=== PATIENT | female | born 1960 | race Caucasian/White ===

== ENCOUNTER 2019-05-30 08:05 | Emergency (ER) | payer BC, OTHER ==
[~2019-05-30] VITALS: Ht 160 cm; Wt 92.8 kg
[~2019-05-30 08:05] MED LIST: ESTRADIOL; EZET10TA5; FENO145T; HYZAAR
[2019-05-30] MEDS ORDERED: FLUT16SP22 (08:26)
[2019-05-30] MEDS ORDERED: METF-397 (08:26)
[2019-05-30] MEDS ORDERED: LEVO50TA6 (08:26)
[2019-05-30 08:33] LABS: BILIRUBIN,URINE NEGATIVE (NEGATIVE); CLARITY,URINE SL CLOUDY; COLOR,URINE YELLOW; GLUCOSE, URINE (UA) NEGATIVE (NEGATIVE); KETONES,URINE NEGATIVE (NEGATIVE); LEUKOCYTE ESTERASE ,URINE 2+ (NEGATIVE); NITRITE,URINE NEGATIVE (NEGATIVE); PH,URINE 6.5 (5-9); PROTEIN,URINE NEGATIVE (NEGATIVE)
[2019-05-30 08:47] LABS: BACTERIA,URINE LARGE /HPF; WBC,URINE TNTC /HPF
--- NOTE | 2019-05-30 09:10 | NUR ---
NOTIFEID PT OF VERY CRITICAL PT IN THE ER AND DR WOULD BE IN SOON HE COULD. DENIES NEEDS AT THIS TIME.
[2019-05-30] MEDS ORDERED: LEVOFLOXACIN 500 MG TAB (LEVAQUIN) PO STA (09:33)
--- NOTE | 2019-05-30 09:40 | ED GU-Female ---
General Chief Complaint: - Urinary Stated Complaint: POSS UTI Nursing Triage Note: ARRIVED VIA AMB TO ROOM 10 WITHOUT DIFFICULTY. COMPLAINS OF BURNING UPON URINATION WITH BLOOD ON THE TISSUE STARTING IN THE NIGHT. LOWER LEFT KIDNEY PAIN YESTERDAY. Nursing Sepsis Screen: No Definite Risk Source: patient Exam Limitations: no limitations History of Present Illness Date Seen by Provider: May 30, 2019 Time Seen by Provider: 09:25 Initial Comments Here with report of burning with urination and some hematuria. Did have some right-sided low back pain that has been moving recently. Does have history of kidney stones and states that that can feel similar but it is not bad and she has not had to take any medicine for it. Denies fever or chills. Timing/Duration: other (2-3 days) Severity/Quality: mild, aching, burning Location: suprapubic Radiation: back (on right) Activities at Onset: none Associated Symptoms: dysuria; No fever/chills; urinary frequency Allergies and Home Medications Allergies Coded Allergies: niacin (Verified Allergy, Severe, HIVES, 05/30/19) NKANo Known Allergies (Verified Allergy, Unknown, 11/08/06) Patient Home Medication List Home Medication List Reviewed: Yes Review of Systems Review of Systems Constitutional: No chills, No fever Respiratory: no symptoms reported Cardiovascular: no symptoms reported Genitourinary: see HPI Musculoskeletal: see HPI Past Zmzzgkf-Hjlgkg-Iowwxa Hx Past Med/Social Hx: Reviewed Nursing Past Med/Soc Hx Patient Social History Alcohol Use: Denies Use Recreational Drug Use: No Smoking Status: Never a Smoker Recent Foreign Travel: No Contact w/Someone Who Travel: No Recent Infectious Disease Expo: No Recent Hopitalizations: Yes (AUG 2006, OCTOBER 2005) Past Medical History Surgeries: Yes (COMPLETE HYSTERECTOMY, OVARIAN CYSTS REMOVED) Respiratory: No Cardiac: No Neurological: No Genitourinary: Yes (UTI) Gastrointestinal: No Musculoskeletal: No Endocrine: Yes (THYROID ISSUE) Diabetes, Non-Insulin dep HEENT: No Cancer: No Psychosocial: No Integumentary: No Blood Disorders: No Family Medical History Reviewed Nursing Family Hx Physical Exam Vital Signs Vital Signs - First Documented 05/30/19 08:17 Temp 37.1 Pulse 72 Resp 16 B/P (MAP) 134/81 (98) Pulse Ox 98 O2 Delivery Room Air Capillary Refill : Less Than 3 Seconds Height, Weight, BMI Height: '" Weight: lbs. oz. [id number]; 36.00 BMI Method: General Appearance: WD/WN, no apparent distress Cardiovascular: regular rate, rhythm, no murmur Respiratory: lungs clear, normal breath sounds Gastrointestinal: non tender, soft Back: normal inspection, no CVA tenderness, no vertebral tenderness Neurologic/Psychiatric: alert, oriented x 3 Progress/Results/Core Measures Suspected Sepsis Recent Fever Within 48 Hours: No Infection Criteria Present: Suspected New Infection New/Unexplained Altered Menta: No Sepsis Screen: No Definite Risk SIRS Temperature: Pulse: 72 Respiratory Rate: 16 Blood Pressure 134 /81 Mean: 98 Results/Orders Lab Results Laboratory Tests Test 05/30/19 08:20 Range/Units Urine Color YELLOW Urine Clarity SL CLOUDY Urine pH 6.5 5-9 Urine Specific [place] 1.010 L 1.016-1.022 Urine Protein NEGATIVE NEGATIVE Urine Glucose (UA) NEGATIVE NEGATIVE Urine Ketones NEGATIVE NEGATIVE Urine Nitrite NEGATIVE NEGATIVE Urine Bilirubin NEGATIVE NEGATIVE Urine Urobilinogen 0.2 < = 1.0 MG/DL Urine Leukocyte Esterase 2+ H NEGATIVE Urine RBC (Auto) 3+ H NEGATIVE Urine RBC NONE /HPF Urine WBC TNTC H /HPF Urine Crystals NONE /LPF Urine Bacteria LARGE H /HPF Urine Casts NONE /LPF Urine Mucus SMALL H /LPF Urine Culture Indicated YES My Orders Orders - ASIYA ASIF MD Ua Culture If Indicated (05/30/19 08:22) Urine Culture (05/30/19 08:20) Levofloxacin Tablet (Levaquin Tablet) (05/30/19 09:33) Vital Signs/I&O 05/30/19 08:17 Temp 37.1 Pulse 72 Resp 16 B/P (MAP) 134/81 (98) Pulse Ox 98 O2 Delivery Room Air Capillary Refill : Less Than 3 Seconds Blood Pressure Mean: 98 POS Progress Note : Progress Note Seen and evaluated. UA ordered. This is complete and this shows findings concerning for urinary tract infection. I have reviewed patient's chart and there are no previous cultures. Due to holiday and no pharmacies being open, we will initiate Levaquin 500 mg by mouth today and give her a printed prescription to take with her she is leaving town today. She will initiate outpatient antibiotics tomorrow. Discharged home with return precautions. Patient verbalize understanding instructions and agreement with plan. Departure Impression Primary Impression: Urinary tract infection Qualified Codes: N30.00 - Acute cystitis without hematuria Disposition: HOME, SELF-CARE Condition: Improved Departure-Patient Inst. Decision time for Depature: 09:38 Referrals: SANDRA OLSEN MD (PCP/Family) Primary Care Physician Patient Instructions: Urinary Tract Infection, Adult (DC) Add. Discharge Instructions: All discharge instructions reviewed with patient and/or family. Voiced understanding. Take antibiotics as directed. Follow up with your Dr. in a few days for recheck. Return for worse pain, fever, vomiting, weakness, breathing problems or other concerns as needed. Culture will be completed if a few days and you'll be called if your antibiotics are not effective for the type of bacteria that you have. Drink plenty of fluids. You may take Tylenol/acetaminophen 1000 mg every 6-8 hours as needed for pain. You may take ibuprofen 400 mg every 8 hours as needed for pain. Scripts Cephalexin (Cephalexin) 500 Mg Tablet 500 MG PO BID, #10 TAB 0 Refills Prov: ASIYA ASIF MD 05/30/19 ASIYA ASIF MD May 30, 2019 09:40 POS
[2019-05-30] MEDS ORDERED: CEPH500T PO (09:41)
[2019-05-30 09:49] VITALS: BP 134/81
== END 2019-05-30 09:49 | disposition home or self-care (01) ==
LOC: EDUNIT# 08:05 → ER 08:06
DX: N39.0 Urinary tract infection, site not specified (principal); E11.9 Type 2 diabetes mellitus without complications; E07.9 Disorder of thyroid, unspecified; Z87.442 Personal history of urinary calculi; Z88.8 Allergy status to other drugs, medicaments and biological substances; Z90.710 Acquired absence of both cervix and uterus
CPT/HCPCS: 81000; 87088; 99283

== ENCOUNTER → 2020-03-13 | Outpatient (CLI) | payer OTHER ==
[~2020-03-13] MED LIST changes: +CEPH500T PO; +FLUT16SP22; +LEVO50TA6; +METF-397
== END ==
LOC: RAD 09:00
PROVIDERS: ATTEND Nurse Practitioner Family
DX: Z12.31 Encounter for screening mammogram for malignant neoplasm of breast (principal)
CPT/HCPCS: 77063; 77067

== ENCOUNTER 2020-05-01 05:29 | Outpatient (RCR) | payer OTHER ==
[~2020-05-01] VITALS: Ht 160 cm; Wt 93.1 kg
[~2020-05-01 05:29] MED LIST changes: +ASCO250T16 PO; +ATEN50TA PO; +ATOR40TA70 PO; +CYAN250014 PO; +DULA1.5P2 SQ; +FENO135C4 PO; +FLUT15.845 NS; +HYDR25TA4 PO; +IRBE300T17 PO; +L.AC1CAP6 PO; +LEVO50TA6 PO; +LORA10TA76 PO; +METF-397 PO; +OMG1KC PO; +PANT40TA52 PO
== END 2020-05-01 11:12 | disposition home or self-care (01) ==
LOC: PREOP 05:29
PROVIDERS: ATTEND Surgery
DX: Z01.812 Encounter for preprocedural laboratory examination (principal); Z12.11 Encounter for screening for malignant neoplasm of colon; K21.9 Gastro-esophageal reflux disease without esophagitis; Z20.828 Contact with and (suspected) exposure to other viral communicable diseases
CPT/HCPCS: 87635

== ENCOUNTER 2020-05-05 12:11 | Day surgery (SDC) | payer OTHER ==
[~2020-05-05] VITALS: Ht 160 cm; Wt 93.1 kg
[2020-05-05] MEDS ORDERED: LACTATED RINGERS 1,000 ML IV STA (12:22)
[2020-05-05] MEDS ORDERED: LACTATED RINGERS 1,000 ML IV ONE (12:23)
[2020-05-05] MEDS ORDERED: HURRICAINE EXT TUBE (BENZOCAINE) XX PRN (12:30)
[2020-05-05 12:43] VITALS: BP 128/83
[2020-05-05] MEDS ORDERED: MIDAZOLAM 2 MG/2 ML (VERSED) VIAL ONE (13:26)
[2020-05-05] MEDS ORDERED: PROPOFOL INJECTION 50 ML IV ONE (13:27)
[2020-05-05 14:10] VITALS: BP 89/53
[2020-05-05 14:15] VITALS: BP 90/51
--- NOTE | 2020-05-05 14:19 | Progress Note-Post Operative ---
Post-Operative Progess Note Surgeon (s)/Commercial Announcer (s) Surgeon DIANA PINEDA DO Commercial Announcer: na Pre-Operative Diagnosis GERD, screening colonoscopy Post-Operative Diagnosis diverticulosis, colon polyps Procedure & Operative Findings Date of Procedure 05/05/20 Procedure Performed/Findings EGD c biopsies, colonoscopy c hot bx polypectomy x5 Anesthesia Type per anesthesiologist Estimated Blood Loss Estimated blood loss (mL): none Specimens/Packing Specimens Removed antrum, GE junction, transverse polyp x1, sigmoid polyp x2, rectal polyp x2 DIANA PINEDA DO May 05, 2020 14:19
[2020-05-05 14:20] VITALS: BP 90/51
--- NOTE | 2020-05-05 14:26 | Anesthesia-General Post-Op ---
MAC Patient Condition Mental Status/LOC: Same as Preop Cardiovascular: Satisfactory Nausea/Vomiting: Absent Respiratory: Satisfactory Pain: Controlled Complications: Absent Post Op Complications Complications None Follow Up Care/Instructions Patient Instructions None needed. Anesthesiology Discharge Order Discharge Order Patient is doing well, no complaints, stable vital signs, no apparent adverse anesthesia problems. NAHOMI GOMEZ DO May 05, 2020 14:26
--- NOTE | 2020-05-05 14:28 | Discharge Inst-Simple/Standard ---
Discharge Inst-Standard Patient Instructions/Follow Up Plan of Care/Instructions/FU: 2-3 weeks Stormy Activity as Tolerated: Yes Discharge Diet: Regular Diet (high fiber) DIANA PINEDA DO May 05, 2020 14:28
[2020-05-05 14:46] VITALS: BP 100/60
--- NOTE | 2020-05-06 00:41 | OPERATIVE REPORT ---
DATE OF SERVICE: 05/05/2020 PREOPERATIVE DIAGNOSES: Gastroesophageal reflux disease and screening colonoscopy. POSTOPERATIVE DIAGNOSES: Diverticulosis, colon polyps. PROCEDURE: EGD with biopsies, colonoscopy with hot biopsy polypectomy x5. SURGEON: Diana Burrows DO ANESTHESIA: Per MDA. ESTIMATED BLOOD LOSS: None. COMPLICATIONS: None. INDICATIONS: The patient is a 59-year-old female with gastroesophageal reflux disease and needing for screening colonoscopy. She understands risks and benefits of procedure and wished to proceed with procedure. Consent was signed in the chart. DESCRIPTION OF PROCEDURE: The patient was taken to the endoscopy suite, placed in left lateral recumbent position. Timeout was performed. Scope was inserted in mouth, down the esophagus, stomach and into the duodenum without difficulty. There were no polyps, masses or ulcerations within the duodenum. Scope was slowly retracted back into the stomach where it was further insufflated. No polyps, masses or ulcerations. Biopsy of the antrum was obtained. Scope was retroflexed noting no other pathology. Scope was returned to its normal position, slowly withdrawn to distal esophagus. Prior to pulling back, the biopsy of the antrum was obtained. The distal esophagus, had normal appearance. No polyps, masses or ulcerations. Biopsy of GE junction was obtained. Scope was then slowly retracted back until completely removed noting no other pathology. Digital rectal exam was performed. No palpable polyps, masses or ulcerations. Scope was inserted in the rectum, advanced all the way to cecum with minimal difficulty. Prep was adequate. Scope was then slowly retracted back. There were no polyps, masses or ulcerations within the cecum, ascending colon, transverse colon, a small polyp was present, which hot biopsy polypectomy was performed. Scope was then continuously retracted back. No other polyps, masses or ulcerations within the remainder of the transverse and descending colon. In the sigmoid colon, there were 2 small polyps, which hot biopsy polypectomies were performed. Scope was then continuously retracted back into the rectum where there are also two very small polyps, which hot biopsy polypectomy was performed. In the sigmoid colon, there was a small amount of diverticulosis present. Scope was retroflexed noting no other pathology. Scope was returned to its normal position, slowly withdrawn until completely removed. The patient tolerated procedure well without any complications. She was taken to recovery room in stable condition. RECOMMENDATIONS: The patient will need repeat colonoscopy in five years. Any issues before that be seen at that time. Also recommended high fiber diet. Continue current medications. Further recommendations pending results of pathology. Job ID: [id number] DocumentID: [id number] Dictated Date: 05/05/2020 14:32:43 Park Aide Date: 05/06/2020 00:41:23 Dictated By: DIANA BURROWS DO
== END 2020-05-05 14:50 | disposition home or self-care (01) ==
LOC: ENDO 12:11
PROVIDERS: ATTEND Surgery
DX: D12.3 Benign neoplasm of transverse colon (principal); K63.5 Polyp of colon; K62.1 Rectal polyp; K21.00 Gastro-esophageal reflux disease with esophagitis, without bleeding; K57.30 Diverticulosis of large intestine without perforation or abscess without bleeding; Z88.8 Allergy status to other drugs, medicaments and biological substances; I10 Essential (primary) hypertension; E78.5 Hyperlipidemia, unspecified; E11.9 Type 2 diabetes mellitus without complications; E03.9 Hypothyroidism, unspecified; M06.9 Rheumatoid arthritis, unspecified; Z79.899 Other long term (current) drug therapy; Z79.84 Long term (current) use of oral hypoglycemic drugs; Z79.890 Hormone replacement therapy

== ENCOUNTER → 2021-03-30 | Outpatient (CLI) | payer OTHER ==
--- NOTE | 2021-03-30 12:54 | Diagnostic Imaging Report ---
INDICATION: Routine screening. Comparison is made prior mammogram from 03/13/2020 and 03/15/2019. 2-D and 3-D bilateral screening mammography was performed with CAD. Scattered fibroglandular densities are identified bilaterally. Scattered calcifications again noted throughout both breasts which appear benign. No mass or malignant-appearing microcalcifications are seen. Biopsy marker clip right breast is again noted. Axillae are unremarkable. IMPRESSION: BI-RADS Category 2 No mammographic features suspicious for malignancy are identified. ACR BI-RADS Category 2: Benign findings. Result letter will be mailed to the patient. Note: At least 10% of breast cancer is not imaged by mammography. Dictated by: Dictated on workstation # [id number]
== END ==
LOC: RAD 08:15
PROVIDERS: ATTEND Family Medicine
DX: Z12.31 Encounter for screening mammogram for malignant neoplasm of breast (principal)
CPT/HCPCS: 77063; 77067

== ENCOUNTER → 2022-04-04 | Outpatient (CLI) | payer OTHER ==
--- NOTE | 2022-04-04 15:58 | Diagnostic Imaging Report ---
INDICATION: Routine screening. COMPARISON: 03/30/2021 and 03/13/2020. TECHNIQUE: 2D and 3D bilateral screening mammography was performed with CAD. FINDINGS: Both breasts are heterogeneously dense, limiting the sensitivity of mammography. Benign calcifications throughout both breasts are noted. No mass or malignant-appearing microcalcifications are seen. The axillae are unremarkable. IMPRESSION: No mammographic features suspicious for malignancy are identified. ACR BI-RADS Category 2: Benign findings. Result letter will be mailed to the patient. Note: At least 10% of breast cancer is not imaged by mammography. Dictated by: Dictated on workstation # [id number]
== END ==
LOC: RAD 10:15
PROVIDERS: ATTEND Nurse Practitioner Family
DX: Z12.31 Encounter for screening mammogram for malignant neoplasm of breast (principal)
CPT/HCPCS: 77063; 77067